=== PATIENT | female | born 1970 | race Caucasian/White ===

== ENCOUNTER 2018-09-23 10:27 | Emergency (ER) | payer MEDICAID ==
[~2018-09-23] VITALS: Ht 165.1 cm; Wt 56.7 kg
[~2018-09-23 10:27] MED LIST: OMEG300C3 PO; PREN1TAB49 PO
[2018-09-23 10:57] VITALS: BP_SYST 131
--- NOTE | 2018-09-23 11:58 | NUR ---
Patient to ER bed 05 for evaluation. Side rails up.
[2018-09-23] MEDS ORDERED: NACL 0.9% 1,000 ML IV ONE (12:00)
[2018-09-23] MEDS ORDERED: KETOROLAC TROMETHAMINE 30 MG VIAL IVP ONE (12:15)
[2018-09-23 12:16] LABS: BILIRUBIN,URINE NEGATIVE (NEGATIVE); BLOOD, URINE NEGATIVE (NEGATIVE); CLARITY/URINE CLEAR (CLEAR); COLOR,URINE YELLOW (YELLOW); GLUCOSE,URINE NEGATIVE (NEGATIVE); KETONES,URINE NEGATIVE (NEGATIVE); LEUKOCYTE ESTERASE ,URINE 1+ (NEGATIVE); NITRITE, URINE NEGATIVE (NEGATIVE); PROTEIN URINE NEGATIVE (NEGATIVE); UROBILINOGEN,URINE 0.2 (0.2-1.0)
--- NOTE | 2018-09-23 12:22 | NUR ---
Pt refusing to start an IV or to administer fluids.
[2018-09-23 12:34] LABS: HEMATOCRIT 37.8 % (36-48); HEMOGLOBIN 12.6 g/dL (12.0-16.0); RED BLOOD CELL COUNT(AUTO) 4.21 MIL/uL (4.2-6.2); WHITE BLOOD COUNT (AUTO) 5.5 K/uL (4.8-10.8)
[2018-09-23 12:35] LABS: BASOPHILS % (AUTO) 0.7 % (0.0-2.0); EOSINOPHILS # (AUTO) 0.1 K/uL (0.0-0.4); EOSINOPHILS % (AUTO) 1.6 % (0.0-4.0); LYMPHOCYTES # (AUTO) 1.7 K/uL (1.0-5.5); LYMPHOCYTES % (AUTO) 30.3 % (20.5-51.5); MEAN CORPUSCULAR HEMOGLOBIN 30 pg (27-31); MEAN CORPUSCULAR HGB CONC 33 % (32-36); MEAN CORPUSCULAR VOLUME 90 fL (79.0-98.0); MONOCYTES # (AUTO) 0.5 K/uL (0.0-1.0); MONOCYTES % (AUTO) 8.6 % (1.7-9.3); NEUTROPHILS # (AUTO) 3.2 K/uL (1.8-7.7); NEUTROPHILS % (AUTO) 58.8 % (40.0-70.0); PLATELET COUNT (AUTO) 255 K/uL (130-430); RED CELL DISTRIBUTION WIDTH 12.6 % (9.0-15.0)
[2018-09-23 12:41] LABS: BACTERIA,URINE FEW /HPF (None Seen); RBC,URINE 0-3 /HPF (0-3)
[2018-09-23 12:42] LABS: MUCUS,URINE 1+ /LPF (None Seen)
[2018-09-23 12:49] VITALS: BP_SYST 129
[2018-09-23 12:56] LABS: POTASSIUM 4.4 mmol/L (3.5-5.1)
[2018-09-23 12:57] LABS: CALCIUM 9.5 mg/dL (8.4-11.0); CREATININE 0.69 mg/dL (0.55-1.30); TOTAL BILIRUBIN 0.2 mg/dL (0.0-1.0)
--- NOTE | 2018-09-23 13:06 | NUR ---
Patient does not wish to proceed with medical care recommended by Dr Garcia. Patient given information related to possible complications, up to and including , which could occur as a result of leaving hospital at this time. Patient verbalizes understanding of risks involved leaving against medical advice. Patient has signed AMA form.
== END 2018-09-23 13:06 | disposition left against medical advice (07) ==
LOC: SED 10:27
DX: R10.9 Unspecified abdominal pain (principal); M54.5 Low back pain; R11.2 Nausea with vomiting, unspecified; R03.0 Elevated blood-pressure reading, without diagnosis of hypertension; Z85.3 Personal history of malignant neoplasm of breast
CPT/HCPCS: 36415; 80053; 81000-TC; 85025; 87086; 99283; J7030

== ENCOUNTER 2023-12-08 00:05 | Emergency (ER) | payer MEDICAID ==
[~2023-12-08] VITALS: Ht 165.1 cm; Wt 53.5 kg
[2023-12-08 00:22] VITALS: BP_SYST 145; PULSE 83; O2SAT 95
[2023-12-08] MEDS ORDERED: KETOROLAC TROMETHAMINE 30 MG VIAL IM ONE (01:45)
== END 2023-12-08 01:53 | disposition home or self-care (01) ==
LOC: SED 00:05
DX: H72.91 Unspecified perforation of tympanic membrane, right ear (principal); Z85.3 Personal history of malignant neoplasm of breast; Z79.899 Other long term (current) drug therapy
CPT/HCPCS: 99282